=== PATIENT | female | born 1975 | race Caucasian/White ===

== ENCOUNTER 2023-04-22 16:02 | Emergency (ER) | payer SELFPAY ==
[~2023-04-22] VITALS: Ht 170.2 cm; Wt 86.2 kg
[2023-04-22 16:10] VITALS: BP 127/85; PULSE 85; RESP 16; TEMP 98.6; O2SAT 100
[2023-04-22] MEDS: ACETAMINOPHEN 325 MG TAB PO ONE (16:41)
[2023-04-22] MEDS ORDERED: CEPH500C16 PO (17:14)
[2023-04-22] MEDS ORDERED: SULF-59 PO (17:14)
[2023-04-22] MEDS ORDERED: IBUP-2213 PO (17:14)
[2023-04-22 17:35] VITALS: BP 127/85; PULSE 85; RESP 16; TEMP 98.6; O2SAT 100
== END 2023-04-22 17:35 | disposition home or self-care (01) ==
LOC: MED 16:02
DX: L02.411 Cutaneous abscess of right axilla (principal); Z79.899 Other long term (current) drug therapy
CPT/HCPCS: 99284